=== PATIENT | male | born 1990 | race Caucasian/White ===

== ENCOUNTER 2020-06-17 13:00 | Outpatient (RCR) | payer OTHER, SELFPAY ==
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
== END 2020-07-30 13:25 | disposition other institution (70) ==
LOC: HO.PT 13:00
PROVIDERS: PCP Nurse Practitioner Family; Visit Provider Nurse Practitioner Family
DX: M54.5 Low back pain (principal)
CPT/HCPCS: 97110; 97112

== ENCOUNTER 2020-07-26 11:50 | Emergency (ER) | payer OTHER, SELFPAY ==
--- NOTE | 2020-07-26 | XR_ITS ---
EXAMINATION: XR CHEST CLINICAL INFORMATION: Cough COMPARISON: None TECHNIQUE: 2 views of the chest were obtained. FINDINGS: No significant abnormality is noted involving the heart, lungs, mediastinum, bony thorax or soft tissues. XR/XR chest 2V IMPRESSION: Unremarkable examination.
[2020-07-26 12:32] VITALS: BP 107/80; PULSE 82; RESP 16; TEMP 36.8; O2SAT 97
--- NOTE | 2020-07-26 12:54 | ED_ITS ---
HPI - Asthma General Chief Complaint: Upper Respiratory Symptoms Stated Complaint: COUGH Time Seen by Provider: 07/26/20 12:51 Source: patient Mode of arrival: ambulatory Limitations: no limitations History of Present Illness MD complaint: other (cough) Onset (ago): month(s) (since December) Severity: moderate Associated symptoms: dry cough Asthma History: childhood onset Treatments Prior to Arrival: inhaled bronchodilator Related Data Previous Rx's Medication Instructions Recorded albuterol sulfate 1 inh INHALATION Q4-6H PRN #1 ea 07/26/20 benzonatate [Tessalon Perles] 100 mg PO TID PRN #20 cap 07/26/20 cetirizine [Zyrtec] 10 mg PO DAILY #30 cap 07/26/20 famotidine [Pepcid] 20 mg PO DAILY #30 tab 07/26/20 fluticasone propionate 1 inh INHALATION Q12H #10.6 g 07/26/20 prednisone 40 mg PO DAILY 5 Days #10 tab 07/26/20 Allergies Allergy/AdvReac Type Severity Reaction Status Date / Time seafood Allergy Swelling Verified 07/26/20 12:34 Review of Systems Review of Systems: Constitutional : No Fever, No Chills ENT/Mouth : No sore throat, No Rhinorrhea, No Swallowing Difficulty Eyes: No Eye Pain, No Swelling, No Redness Cardiovascular : No Chest Pain, positive SOB, No Orthopnea, no Edema Respiratory : pos Cough, No Sputum, pos Wheezing, no dyspnea Gastrointestinal : No Nausea, No Vomiting, No Diarrhea, No abdominal Pain, No Hematochezia, No Melena Genitourinary : No Dysuria, No Urinary Frequency, No Hematuria Musculoskeletal : No joint pain, No Myalgias Skin : No Skin Lesions, No rash Neuro : No Weakness, No Numbness, No Dizziness, No Headache PMFSH Past Medical History Attestation statement: The following information was validated with the patient. Medical History Asthma Social History Social History (Updated 07/26/20 @ 13:22 by Ana Paula Yan DO) Smoking Status: Former smoker Use of substances other than those prescribed or required for medical reasons: No Advance Directives: No Advance Directives Information Provided: No Physical Exam Vital Signs: Vital Signs: Last Vital Signs Temp 98.3 F 07/26/20 12:32 Pulse 82 12/07/20 12:32 Resp 16 07/26/20 12:32 BP 107/80 07/26/20 12:32 Pulse Ox 97 07/26/20 12:32 Body Mass Index 20.0 Appearance: Alert. Oriented X3. No acute distress. Eyes: Pupils equal, round and reactive to light. ENT: Pharynx normal. Neck: Normal inspection. Neck supple. CVS: Normal heart rate and rhythm. Pulses normal. Respiratory: No respiratory distress. Breath sounds normal. Abdomen: Soft and non-tender. Skin: Skin warm and dry. Normal skin color. Normal skin turgor. Extremities: No lower extremity edema. No calf ttp Neuro: Oriented X 3. No motor deficit. No sensory deficit. 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 - at this time will need CXR and start on fluticasone as well as daily zyrtec/prednisone and pepcid in case of acid reflux can follow up with PCP Discharge Plan Discharge Clinical Impression: Cough Patient Disposition: Home, Self-Care Instructions: Chronic Cough (ED) Additional Instructions: return to ED for any worsening symptoms or concerns your chest xray was negative Prescriptions: New prednisone 20 mg tablet 40 mg PO DAILY 5 Days Qty: 10 RF: 0 Zyrtec 10 mg capsule 10 mg PO DAILY Qty: 30 RF: 1 fluticasone propionate 44 mcg/actuation HFA aerosol inhaler 1 inh inhalation Q12H Qty: 10.6 RF: 0 famotidine [Pepcid] 20 mg tablet 20 mg PO DAILY Qty: 30 RF: 0 benzonatate [Tessalon Perles] 100 mg capsule 100 mg PO TID PRN (Reason: cough) Qty: 20 RF: 0 albuterol sulfate 90 mcg/actuation aerosol powdr breath activated 1 inh inhalation Q4-6H PRN (Reason: shortness of breath or wheezing) Qty: 1 RF: 0 Referrals: Orquidea Gallegos NP [Primary Care Provider] - 2 days (you should see a printed circuit board panels deburrer)
== END 2020-07-26 13:53 | disposition home or self-care (01) ==
PROVIDERS: Emergency Provider Emergency Medicine; PCP Nurse Practitioner Family
DX: R05 Cough (principal); J45.909 Unspecified asthma, uncomplicated; Z79.899 Other long term (current) drug therapy; Z87.891 Personal history of nicotine dependence
CPT/HCPCS: 71046; 99283

== ENCOUNTER 2021-01-06 14:00 | Outpatient (RCR) | payer OTHER, SELFPAY ==
--- NOTE | 2020-12-22 15:18 | MHC.PT.EP ---
[facility] [place] [facility] [place] [facility] [place] [facility] [address] Syeda Norman [address] [phone] F: [phone] F: [phone] F: [phone] F: [phone] Physical Therapy Plan of Care Date of Evaluation: Date of Surgery: NA Diagnosis: thoracic spine pain Assessment: The patient was previously treated for his lumbar spine with a good outcome. He now presents for thoracic spine pain. He has reduced thoracic mobility noted between T6-8 with more pain with left UPA's The patient has poor breathing mechanics and he tends to be a chest breather. He has poor sitting posture during the evaluation. Poor postural awareness noted. UE ROM is WNL with pain at end range. Pt is a good candidate for skilled PT Frequency and Duration: The patient will be seen 2x/week x 4 weeks. Short Term Goals: 2 weeks 1.Pt to able to demonstrate proper sitting posture with the use of a lumbar roll to decrease aggravating factors. 2.Pt to be able to demonstrate proper posture for common leisure activities such as crocheting and phone/tablet use. 3.For the patient to demonstrate proper upright sitting posture with use of the lumbar roll to improve compliance and carryover. Half-Way Goals: 4 weeks 1.The patient to demonstrate proper lifting mechanics for household chore activities to show improved functional mobility. 2. pt to be able to do all functional movements such as squatting, bending, and reaching overhead with good motor control and no pain. 3. Pt to be independent with final HEP for pain control. Treatment Plan: Modalities to reduce pain, spasms and effusion. Manual therapy to restore motion and function. Therapeutic exercise to improve strength and flexibility. Neuromuscular re-education for posture and balance. Therapeutic activities to return to functional activities of daily living. Electronically signed by: Jasmin Joregnsen PT DPT Please sign and return to therapist. Thank you for your referral.
== END 2021-01-09 14:00 | disposition home or self-care (01) ==
LOC: HO.PT 14:00
PROVIDERS: PCP Internal Medicine; Visit Provider Internal Medicine
DX: M54.6 Pain in thoracic spine (principal); G89.29 Other chronic pain
CPT/HCPCS: 97110; 97112; 97140; 97162

== ENCOUNTER 2021-01-06 14:56 | Outpatient (REF) | payer OTHER, SELFPAY ==
--- NOTE | ~2021-01-06 | XR_ITS ---
EXAMINATION: XR THORACOLUMBAR SPINE CLINICAL INFORMATION: Pain in thoracic spine. COMPARISON: Report from thoracic spine radiographs dated 02/24/2014. TECHNIQUE: AP, lateral, and swimmer's views of the thoracic spine. FINDINGS: The vertebral alignment is normal. No intrinsic bony abnormality. The disc heights and neural foramina are well maintained. The endplates and posterior elements are normal. No fracture or subluxation. The surrounding prevertebral soft tissues are unremarkable. XR/XR thoracic spine 2V IMPRESSION: Unremarkable examination.
== END 2021-01-06 14:57 | disposition home or self-care (01) ==
LOC: HO.XRAY 14:56
PROVIDERS: PCP Internal Medicine; Visit Provider Internal Medicine
DX: M54.6 Pain in thoracic spine (principal); G89.29 Other chronic pain
CPT/HCPCS: 72070

== ENCOUNTER 2021-01-18 08:09 | Outpatient (REF) | payer OTHER, SELFPAY ==
[2021-01-18 09:28] LABS: MANUAL DIFF FLAG NO
[2021-01-18 09:33] LABS: Basophils Absolute Auto 0.1 X10*3/uL (0.0-0.2); Basophils Percent Auto 0.8 % (0-2); Eosinophils Absolute Auto 1.5 X10*3/uL (0.0-0.4); Eosinophils Percent Auto 18.2 % (0-4); Hematocrit 45.8 % (42-52); Hemoglobin 15.5 g/dl (14.0-18.0); Imm Gran Abs Auto 0.03 X10*3/uL (0.00-0.03); Imm Gran Pct Auto 0.4 % (0.0-0.4); Lymphocytes Absolute Auto 2.3 X10*3/uL (1.2-4.9); Lymphocytes Percent Auto 27.3 % (20-40); Mean Corpuscular HGB Conc 33.8 g/dl (31.0-36.0); Mean Corpuscular Hemoglobin 29.9 pg (27.0-33.0); Mean Corpuscular Volume 88.4 fL (80-98); Mean Platelet Volume 10.8 fL (9.4-12.4); Monocytes Absolute Auto 0.6 X10*3/uL (0.1-1.2); Monocytes Percent Auto 7.3 % (2-11); Neutrophils Absolute Auto 3.9 X10*3/uL (2.0-8.3); Platelet Count 234 X10*3/uL (160-400); Red Blood Count 5.18 X10*6/uL (4.60-5.80); Red Cell Distribution Width 12.6 % (11.0-16.0); White Blood Count 8.4 X10*3/uL (4.8-10.8)
[2021-01-18 10:00] LABS: Alanine Aminotransferase 18 U/L (0-40); Albumin Level 4.5 g/dL (3.5-5.0); Alkaline Phosphatase 59 U/L (39-117); Anion Gap 12 (12-20); Aspartate Amino Transferase 15 U/L (5-37); Bilirubin Total 0.6 mg/dL (0.0-1.0); Blood Urea Nitrogen 9 mg/dL (9-16); Calcium 9.5 mg/dL (8.4-10.2); Carbon Dioxide 29 mmol/L (22-29); Chloride 105 mmol/L (96-108); Estimated Glomerular Filt Rate > 60; Glucose Random 106 mg/dL (60-115); Potassium 3.7 mmol/L (3.3-5.1); Sodium 142 mmol/L (135-145); Total Protein 7.3 g/dL (6.5-8.0)
[2021-01-18 10:25] LABS: Thyroid Stimulating Hormone 2.11 uIU/mL (0.32-4.0)
[2021-01-20 17:06] LABS: Transglutaminase IgA 1 U/mL
[2021-01-23 22:37] LABS: Endomysial IgA Antibody Negative (Negative)
== END 2021-01-18 08:10 | disposition home or self-care (01) ==
LOC: HO.LAB 08:09
PROVIDERS: PCP Internal Medicine; Referring Provider Internal Medicine; Visit Provider Physician Assistant
DX: R10.11 Right upper quadrant pain (principal); K21.9 Gastro-esophageal reflux disease without esophagitis; R19.7 Diarrhea, unspecified; K59.09 Other constipation; R74.01 Elevation of levels of liver transaminase levels; Z79.899 Other long term (current) drug therapy
CPT/HCPCS: 36415; 80053; 83516; 84443; 85025; 86255; 86256; 99202

== ENCOUNTER 2021-01-22 03:41 | Emergency (ER) | payer OTHER, SELFPAY ==
--- NOTE | ~2021-01-22 | XR_ITS ---
EXAMINATION: XR CHEST CLINICAL INFORMATION: Dyspnea COMPARISON: 07/26/2020 TECHNIQUE: Frontal view of the chest was obtained. FINDINGS: The lungs are clear with no focal consolidation. No evidence of pneumothorax, pulmonary edema, or pleural effusions. The cardiomediastinal silhouette is unremarkable. No acute osseous findings. XR/XR chest 1V IMPRESSION: No acute cardiopulmonary findings.
[2021-01-22 03:54] VITALS: BP 132/92; PULSE 87; RESP 24; TEMP 36.8; O2SAT 95; BMI 20.5
[2021-01-22] MEDS: Albuterol Sulfate (0.083%) 2.5 MG/3 ML VIAL.NEB 5 MG INHALE ×2 (04:10→04:38)
[2021-01-22 04:11] VITALS: PULSE 81; O2SAT 97
[2021-01-22 04:39] VITALS: PULSE 96; O2SAT 95
[2021-01-22 05:04] VITALS: BP 126/71; PULSE 97; RESP 22; O2SAT 92
[2021-01-22] MEDS: predniSONE 20 MG TABLET 40 MG PO (05:06)
[2021-01-22 05:15] LABS: Influenza A PCR NEGATIVE (Negative); Influenza B PCR NEGATIVE (Negative); Resp Syncy Virus RNA Qual PCR NEGATIVE (Negative); SARS COV2 PCR INHOUSE NEGATIVE (Negative)
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
[2021-01-22 06:00] VITALS: PULSE 90; RESP 18; O2SAT 94
--- NOTE | 2021-01-22 06:08 | ED.ASTHMA ---
HPI - Asthma General Chief Complaint: Asthma Stated Complaint: cough/headache Time Seen by Provider: 01/22/21 04:35 Source: patient Mode of arrival: ambulatory History of Present Illness HPI Narrative: 30-year-old male with known asthma and endorses poor compliance with maintenance inhaler presents with worsening shortness of breath for the past couple of days that has been on ongoing problem since he purchase a dog. Patient states that started with cough then shortness of breath and wheezing. Otherwise, he denies any fevers, chills, GI or symptoms. Related Data Home Medications Medication Instructions Recorded Confirmed omeprazole magnesium 20 mg 20 mg PO DAILY 06/24/20 01/21/21 tablet,delayed release ibuprofen 600 mg tablet 600 mg PO TID 07/29/20 01/21/21 Previous Rx's Medication Instructions Recorded benzonatate [Tessalon Perles] 100 mg PO TID PRN #20 cap 07/26/20 famotidine [Pepcid] 20 mg PO DAILY #30 tab 07/26/20 fluticasone propionate 1 inh INHALATION Q12H #10.6 g 07/26/20 albuterol sulfate 90 mcg/actuation 2 puff INHALATION Q6H PRN #8.5 g 01/16/21 aerosol inhaler omeprazole 20 mg capsule,delayed 20 mg PO BID 30 Days #60 cap 01/18/21 release sucralfate 1 gram tablet 1 g PO QIDACHS 21 Days #90 tab 01/18/21 prednisone 40 mg PO DAILY 4 Days #8 tab 01/22/21 Allergies Allergy/AdvReac Type Severity Reaction Status Date / Time seafood Allergy Severe Anaphylaxis Verified 01/22/21 03:54 Review of Systems Review of Systems: Pertinent positives and negatives as stated in HPI 10 point review of systems is otherwise negative. [facility] Past Medical History Source: nursing notes reviewed Medical History Asthma Numbness and tingling of both legs Surgical History No pertinent past surgical history Family History Family History Father No problems noted. Mother No problems noted. Social History Social History Household Members: Significant Other Alcohol intake: never Patient Tobacco Use Status: Never used Tobacco Advance Directives: No Advance Directives Information Provided: No Current occupational status: employed Physical Exam Vital Signs: Vital Signs: Last Vital Signs Temp 98.3 F 01/22/21 03:54 Pulse 90 01/22/21 06:00 Resp 18 01/22/21 06:00 BP 126/71 01/22/21 05:04 Pulse Ox 94 01/22/21 06:00 Oxygen Flow Rate 3 01/22/21 03:54 Body Mass Index 20.5 VITAL SIGNS: Reviewed. GENERAL: Well developed, well nourished, in no acute distress. HEAD: Normocephalic/atraumatic EYES: PERRLA, EOMI OROPHARYNX: no oral lesions noted, posterior pharynx clear NECK: Supple, no adenopathy LUNGS: Expiratory wheeze, tachypnea, no rales SpO2<95> on 2 L of nasal cannula CARDIOVASCULAR: Regular rate and rhythm without noted murmurs ABDOMEN: Soft, non-tender, non-distended with bowel sounds. NEUROLOGIC: Alert and oriented x 4. Strength and sensation to light touch were grossly intact x 4. Course Course Course Narrative: 30-year-old male with history and clinical presentation consistent with mild asthma exacerbation requiring p.o. prednisone and to 5 mg hour long albuterol treatments with significant improvement in aeration, resolution of expiratory wheeze and improvement of oxygen saturation on room air. Chest x-ray is negative for any acute findings. MDM - Asthma Lab Data Labs: Lab Results 01/22/21 Range/Units 04:21 Coronavirus (PCR) NEGATIVE (Negative) Influenza Type A (PCR) NEGATIVE (Negative) Influenza Type B (PCR) NEGATIVE (Negative) RSV RNA Qual (PCR) NEGATIVE (Negative) Discharge Plan Discharge Clinical Impression: Asthma exacerbation Patient Disposition: Home, Self-Care Instructions: Asthma (ED) Additional Instructions: 1. Recommend starting Claritin and Flonase for additional asthma exacerbation prevention. In addition, please start taking your maintenance inhaler as prescribed. 2. Please follow-up with your primary care provider for re-evaluation. Return to the ER for any acute worsening of symptoms. Prescriptions: New prednisone 20 mg tablet 40 mg PO DAILY 4 Days Qty: 8 RF: 0 No Action albuterol sulfate [ProAir HFA] 90 mcg/actuation HFA aerosol inhaler 2 puff inhalation Q6H PRN (Reason: shortness of breath or wheezing) Qty: 8.5 RF: 0 fluticasone propionate 44 mcg/actuation HFA aerosol inhaler 1 inh inhalation Q12H Qty: 10.6 RF: 0 famotidine [Pepcid] 20 mg tablet 20 mg PO DAILY Qty: 30 RF: 0 benzonatate [Tessalon Perles] 100 mg capsule 100 mg PO TID PRN (Reason: cough) Qty: 20 RF: 0 omeprazole magnesium 20 mg tablet,delayed release (DR/EC) 20 mg PO DAILY RF: 0 ibuprofen 600 mg tablet 600 mg PO TID RF: 0 omeprazole 20 mg capsule,delayed release(DR/EC) 20 mg PO BID 30 Days Qty: 60 RF: 6 sucralfate 1 gram tablet 1 g PO QIDACHS 21 Days Qty: 90 RF: 0 Referrals: Po,Monique Evans MD [Primary Care Provider] - 2 days
[2021-01-22 06:43] VITALS: BP 101/58; PULSE 98; RESP 18; O2SAT 96
== END 2021-01-22 06:37 | disposition home or self-care (01) ==
PROVIDERS: Emergency Provider Student in an Organized Health Care Education/Training Program; PCP Internal Medicine
DX: J45.901 Unspecified asthma with (acute) exacerbation (principal); R05 Cough; R51.9 Headache, unspecified; Z20.822 Contact with and (suspected) exposure to COVID-19; Z79.899 Other long term (current) drug therapy; Z91.14 Patient's other noncompliance with medication regimen
CPT/HCPCS: 0241U; 36415; 71045; 94640; 99283

== ENCOUNTER 2021-02-16 12:32 | Day surgery (SDC) | payer OTHER, SELFPAY ==
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
[2021-02-16 12:43] VITALS: BP 114/55; PULSE 78; RESP 18; TEMP 36.8; O2SAT 97; BMI 20.2
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
[2021-02-16] MEDS: Lactated Ringers 1,000 ML 100 ML IVCONT (13:15)
--- NOTE | 2021-02-16 13:30 | P.HPSUR_ITS ---
Pre-Procedural Eval Section A Date of Service: 02/16/21 Section B Chief Complaint: GERD Relevant Family History (Specify if Yes): No Relevant Social History: None Present Medications: see Short Stay Collaborative assessment Medical History: Significant History (Allergic rhinitis Asthma GERD (gastroesophageal reflux disease) Numbness and tingling of both legs) History of Previous Operations: No relevant previous surgery Allergies: Allergies Allergy/AdvReac Type Severity Reaction Status Date / Time seafood Allergy Severe Anaphylaxis Verified 02/16/21 13:20 Review of Systems Sugical H&P ROS: Negative: Constitution, Cardiovascular, Respiratory, Neurological, Psychiatric, Hem-Onc, Allergic/Immunologic, Gastrointestinal, Genitourinary, Musculoskeletal, Integumentary, Endocrine and Eyes/Ears/Nose/Throat Exam Surgical H&P Exam: Normal: HEENT, Normal: Heart, Normal: Lungs, Normal: Extremit ies, Normal: Abdomen, Normal: Skin and Normal: Neurological Plan Diagnosis/Plan: Unchanged I have reviewed the history and physical and performed a pertinent physical examination on my patient. No changes have occurred unless specified.
--- NOTE | 2021-02-16 13:32 | PM.OP ---
Brief Operative Note Date of Service: 02/16/21 Pre-op diagnosis: dysphagia Post-op diagnosis: same Procedure: see op note Surgeon: Mike Constantino MD Anesthesia: MAC Was an Advertising Editor used for this Procedure?: No Estimated blood loss (mL): 0 Condition: stable Disposition: PACU
--- NOTE | 2021-02-16 13:32 | W.PM.OPN ---
Operative Note Operative Note Date of Service: 02/16/21 Narrative: Procedure Description: EGD FLEXIBLE TRANSORAL UPPER GASTROINTESTINAL ENDOSCOPY UPPER ENDOSCOPY Consent: Indications for the procedure and potential complications of bleeding, perforation, reaction to medications and missed diagnosis were discussed with the patient and informed consent was obtained. Instrument: Olympus GIF H 190 J mid size upper endoscope Monitoring: Vital signs and clinical assessment, continuous EKG monitoring, Pulse oximetry, Carbon Dioxide monitoring and blood pressure monitoring were done throughout the procedure. Procedure: The patient was placed in the left lateral decubitis position and pre-procedure medications were administered and a bite block was placed. The endoscope was inserted into the mouth and advanced under direct vision to the third part of duodenum. A careful inspection was made as the upper endoscope was withdrawn including a retroflexed examination of the proximal stomach; Findings and interventions are described below. Findings: Larynx:normal Esophagus: GE junction at 42 cm, diaphragm hiatus at 42 cm, mild esophagitis noted with few islands suspicious for barretts mucosa so bx taken. The lower esophagus was dilated to 20 mm with balloon and the upper esophagus to 19 mm with balloon. biopsies taken from GEJ, distal and proximal esophagus in different jars. Stomach: Patchy gastric erythema. Biopsies were obtained. Grade 2 flap valve on retroflexed examination of the cardia. Duodenum: Normal bulb and descending duodenum, bx taken Intervention: Biopsies as noted above, balloon dilation Impression/Findings: barretts esophagus esophagitis PLAN: await bx cont with current treatments, might increase PPI depending on results if h pylori pos then treat
[2021-02-16 14:06] VITALS: BP 90/48; PULSE 85; RESP 16; TEMP 36.4; O2SAT 97
[2021-02-16 14:21] VITALS: BP 92/51; PULSE 63; RESP 16; O2SAT 99
[2021-02-16 14:40] VITALS: BP 101/62; PULSE 72; RESP 18; O2SAT 98
== END 2021-02-16 15:15 | disposition home or self-care (01) ==
PROVIDERS: PCP Internal Medicine; Visit Provider Internal Medicine Gastroenterology
PROC: 0DJ08ZZ Inspection of Upper Intestinal Tract, Via Natural or Artificial Opening Endoscopic (ICD-10-PCS; CPT 43235; principal; 2021-02-16 14:00)
DX: R13.10 Dysphagia, unspecified (principal); K21.9 Gastro-esophageal reflux disease without esophagitis; K20.80 Other esophagitis without bleeding; K44.9 Diaphragmatic hernia without obstruction or gangrene; J45.909 Unspecified asthma, uncomplicated; Z87.891 Personal history of nicotine dependence; Z79.899 Other long term (current) drug therapy; Z79.1 Long term (current) use of non-steroidal anti-inflammatories (NSAID)
CPT/HCPCS: 43249; 43239; 88305; 88342; C1726; J3010

== ENCOUNTER 2021-03-02 18:35 | Emergency (ER) | payer OTHER, SELFPAY ==
[2021-03-02 19:16] VITALS: BP 118/79; PULSE 80; RESP 18; TEMP 37.1; O2SAT 97; BMI 20.7
--- NOTE | 2021-03-02 20:10 | ED.GENADULT ---
HPI - General Adult General Chief complaint: Dyspnea Stated complaint: Bad Allergies Time Seen by Provider: 03/02/21 20:03 Related Data Home Medications Medication Instructions Recorded Confirmed omeprazole magnesium 20 mg 20 mg PO DAILY 06/24/20 01/21/21 tablet,delayed release ibuprofen 600 mg tablet 600 mg PO TID 07/29/20 01/21/21 Previous Rx's Medication Instructions Recorded benzonatate [Tessalon Perles] 100 mg PO TID PRN #20 cap 07/26/20 famotidine [Pepcid] 20 mg PO DAILY #30 tab 07/26/20 fluticasone propionate 1 inh INHALATION Q12H #10.6 g 07/26/20 omeprazole 20 mg capsule,delayed 20 mg PO BID 30 Days #60 cap 01/18/21 release prednisone 40 mg PO DAILY 4 Days #8 tab 01/22/21 albuterol sulfate 90 mcg/actuation 2 puff INHALATION Q6H PRN #8.5 g 02/05/21 aerosol inhaler benzonatate [Tessalon Perles] 100 mg PO TID PRN #30 cap 03/02/21 cetirizine [Zyrtec] 10 mg PO DAILY #20 cap 03/02/21 prednisone 40 mg PO DAILY 4 Days #8 tab 03/02/21 sucralfate 1 gram tablet 1 g PO QID #90 tab 03/02/21 Allergies Allergy/AdvReac Type Severity Reaction Status Date / Time seafood Allergy Severe Anaphylaxis Verified 02/16/21 13:20 Review of Systems Constitutional: Constitutional: Denies weight gain and Denies weight loss Cardiovascular: Cardiovascular: Reports no additional cardiovascular complaints Respiratory: Respiratory: Reports cough and Reports other (Allergy reaction to dogs, wheezing and cough) Gastrointestinal: Gastrointestinal: Denies abdominal pain, Denies belching, Denies melena, Denies bloating, Denies change in bowel habits, Denies dyspepsia, Denies heartburn, Denies nausea and Denies vomiting Neurologic: Reports system reviewed and no additional complaints, except as documented Psychiatric: Psychiatric: Reports no additional psychiatric complaints PMFSH Past Medical History Medical History Allergic rhinitis Asthma GERD (gastroesophageal reflux disease) Numbness and tingling of both legs Surgical History No pertinent past surgical history Family History Family History Father No problems noted. Mother No problems noted. Social History Social History Household Members: Significant Other Alcohol intake: never Patient Tobacco Use Status: Former Tobacco user Advance Directives: No Advance Directives Information Provided: No Current occupational status: employed Physical Exam Vital Signs: Vital Signs: Last Vital Signs Temp 98.7 F 03/02/21 19:16 Pulse 80 03/02/21 19:16 Resp 18 03/02/21 19:16 BP 118/79 03/02/21 19:16 Pulse Ox 97 03/02/21 19:16 Body Mass Index 20.7 Const: General: healthy appearing, no acute distress and well developed Nutritional Appearance: well nourished Orientation/consciousness: patient oriented x3 Neck: Neck: Yes normal visual inspection, Yes full ROM and Yes trachea midline Thyroid: Thyroid normal Resp: Auscultation: clear to auscultation bilaterally Cardio: Rate: regular rate Rhythm: regular rhythm GI: Inspection: Yes normal to inspection and No distended Palpation (GI): No hepatosplenomegaly present Auscultation: normal bowel sounds Skin: General skin exam: elasticity normal, turgor normal and dry skin Neuro: General: patient oriented x3 Course Course Course Narrative: 30-year-old male here with a past medical history of asthma is here today for asthma exacerbation. He reports that he believes that he is allergic to dogs. Patient has 2 dogs at home. Has an appointment with government program manager at the end of the month. Patient denies any worsening SOB. He has been using his inhalers and has been out of it for the last few hours. Patient reports that he often will start cough in and his asthma exacerbated even more. Patient denies any fever, chills only GI or symptoms I will give patient dose of prednisone and sent him on prednisone for 5 days. I will send him home with Nehemiah Mendez and he can use it as needed for cough. Will give him a dose of albuterol inhaler tonight. Patient is agreeable to plan of care and verbalizes understanding of instructions. He was given the opportunity to ask questions all questions answered. Discharge Plan Discharge Clinical Impression: Cough Asthma Qualifiers: Asthma severity: mild Asthma persistence: intermittent Asthma complication type: uncomplicated Qualified Code(s): J45.20 - Mild intermittent asthma, uncomplicated Patient Disposition: Home, Self-Care Instructions: Asthma (ED), Allergies (ED) Additional Instructions: You were seen here today for exacerbation of your asthma. Please follow-up with your government program manager. Try to stay away from the dogs as much as possible. You were given a dose of prednisone in the ER as well as inhaler. He will be sent home with prednisone for the next 4 days. You will be given a script for Zyrtec and inhaler. You may return to emergency department if your symptoms will get worse or if he will experience any additional concerning symptoms. Prescriptions: New prednisone 20 mg tablet 40 mg PO DAILY 4 Days Qty: 8 RF: 0 Zyrtec 10 mg capsule 10 mg PO DAILY Qty: 20 RF: 0 benzonatate [Tessalon Perles] 100 mg capsule 100 mg PO TID PRN (Reason: cough) Qty: 30 RF: 0 No Action albuterol sulfate [Ventolin HFA] 90 mcg/actuation HFA aerosol inhaler 2 puff inhalation Q6H PRN (Reason: for wheezing) Qty: 8.5 RF: 0 sucralfate 1 gram tablet 1 g PO QID Qty: 90 RF: 0 prednisone 20 mg tablet 40 mg PO DAILY 4 Days Qty: 8 RF: 0 fluticasone propionate 44 mcg/actuation HFA aerosol inhaler 1 inh inhalation Q12H Qty: 10.6 RF: 0 famotidine [Pepcid] 20 mg tablet 20 mg PO DAILY Qty: 30 RF: 0 benzonatate [Tessalon Perles] 100 mg capsule 100 mg PO TID PRN (Reason: cough) Qty: 20 RF: 0 omeprazole magnesium 20 mg tablet,delayed release (DR/EC) 20 mg PO DAILY RF: 0 ibuprofen 600 mg tablet 600 mg PO TID RF: 0 omeprazole 20 mg capsule,delayed release(DR/EC) 20 mg PO BID 30 Days Qty: 60 RF: 6 Stand Alone Forms: Work/School Release Interventions: ED Discharge Assessment Last Done: 03/02/21 20:33 Discharge Date/Time: 03/02/21 20:37
[2021-03-02] MEDS: predniSONE 20 MG TABLET 40 MG PO (20:31)
[2021-03-02] MEDS: Albuterol Sulfate 90 MCG 8 GM INHALER 2 PUFF INHALE (20:31)
--- NOTE | 2021-03-02 20:36 | PC.NURSE ---
PT GIVEN INHALER WITH INSTRUCTIONS PT LS CLEAR.
== END 2021-03-02 20:37 | disposition home or self-care (01) ==
PROVIDERS: Emergency Provider Emergency Medicine Emergency Medical Services; PCP Internal Medicine
DX: J45.20 Mild intermittent asthma, uncomplicated (principal); R06.00 Dyspnea, unspecified; R05 Cough; Z87.891 Personal history of nicotine dependence; Z79.899 Other long term (current) drug therapy
CPT/HCPCS: 99283

== ENCOUNTER → 2021-03-03 10:37 | Outpatient (BNVA) | payer MEDICAID, SELFPAY | PROVIDERS: PCP Internal Medicine; Referring Provider Internal Medicine; Visit Provider Physician Assistant | DX: K20.90 Esophagitis, unspecified without bleeding (principal) | CPT/HCPCS: 99212 ==

== ENCOUNTER 2021-04-17 20:17 | Emergency (ER) | payer MEDICAID, SELFPAY ==
[2021-04-17 20:22] VITALS: BP 126/76; PULSE 100; RESP 18; TEMP 36.7; O2SAT 96; BMI 20.2
[2021-04-17] MEDS: Albuterol Sulfate 90 MCG 8 GM INHALER 2 PUFF INHALE (22:23)
--- NOTE | 2021-04-17 22:32 | ED.GENADULT ---
HPI - General Adult General Chief complaint: General Medical Stated complaint: Asthma Time Seen by Provider: 04/17/21 21:51 Source: patient Mode of arrival: ambulatory Limitations: no limitations History of Present Illness HPI narrative: 30-year-old male presents with asthma exacerbation. States that he ran out of his inhaler, has dogs and is allergic to them. Does have an appointment baster hand. Patient does not report any fevers, chills, chest pain or pressure, shortness breath, wheezing, or any other concerning symptoms. Onset (ago): day(s) (1) Location: chest Severity: mild Exacerbating factors: other (Allergen exposure) Associated symptoms: denies other symptoms Treatments prior to arrival: none Related Data Previous Rx's Medication Instructions Recorded famotidine 20 mg tablet (Pepcid) 20 mg PO DAILY #30 tab 07/26/20 benzonatate 100 mg capsule 100 mg PO TID PRN #30 cap 03/02/21 (Tessalon Perles) cetirizine 10 mg capsule (Zyrtec) 10 mg PO DAILY #20 cap 03/02/21 prednisone 20 mg tablet 40 mg PO DAILY 4 Days #8 tab 03/02/21 pantoprazole 40 mg tablet,delayed 40 mg PO DAILY 30 Days #30 tab 03/03/21 release albuterol sulfate 90 mcg/actuation 2 puff PO Q6H PRN #18 g 03/06/21 aerosol inhaler (Ventolin HFA) fluticasone furoate 100 1 inh INHALATION DAILY #28 ea 03/10/21 mcg-vilanterol 25 mcg/dose inhalation powder (Breo Ellipta) sucralfate 1 gram tablet 1 g PO QID #90 tab 03/15/21 albuterol sulfate 90 mcg/actuation 2 puff INHALATION Q4-6H PRN #8.5 g 04/17/21 aerosol inhaler Allergies Allergy/AdvReac Type Severity Reaction Status Date / Time seafood Allergy Severe Anaphylaxis Verified 04/17/21 20:21 Review of Systems Review of Systems: Constitutional: No Fever, No Chills ENT/Mouth: No Ear Pain, No Hoarseness, No sore throat Eyes: No Eye Pain, No Swelling, No Redness, No Foreign Body Cardiovascular: No Chest Pain, No SOB Respiratory: Positive Cough, No Dyspnea, positive wheeze Gastrointestinal: No Nausea, No Vomiting, No Diarrhea, No abdominal Pain Genitourinary: No Dysuria, No Hematuria Musculoskeletal: No joint pain, No Myalgias, No Joint Swelling Skin: No Skin lacerations, No rash Neuro: No Weakness, No Numbness, No Paresthesias, No Loss of Consciousness, No Dizziness, No Headache Psych: No Anxiety/Panic, No Depression Heme/Lymph: no easy bruising, no Lymphadenopathy Endocrine: No Polyuria, No Polydipsia Yes all other systems are reviewed and are negative [facility] Past Medical History Attestation statement: The following information was validated with the patient. Source: old records reviewed Medical History (Updated 04/17/21 @ 21:59 by Lulú Whelan NP) Allergic rhinitis Asthma GERD (gastroesophageal reflux disease) Numbness and tingling of both legs Surgical History H/O esophagogastroduodenoscopy No pertinent past surgical history Family History Family History Father No problems noted. Mother No problems noted. Social History Social History Household Members: Significant Other Housing: Apartment Alcohol intake: never Patient Tobacco Use Status: Former Tobacco user Tobacco use type: Cigarette Years Smoked: stopped December 2018 e-Cigarette/Vaping Use: Never Used Second Hand Smoke Exposure: No Advance Directives: No Advance Directives Information Provided: No Current occupational status: employed Physical Exam Vital Signs: Vital Signs: Last Vital Signs Temp 98.1 F 04/17/21 20:22 Pulse 100 04/17/21 20:22 Resp 18 04/17/21 20:22 BP 126/76 04/17/21 20:22 Pulse Ox 96 04/17/21 20:22 Body Mass Index 20.2 Appearance: Alert. Oriented X3. No acute distress. Eyes: Pupils equal, round and reactive to light. ENT: Pharynx normal. Neck: Normal inspection. Neck supple. CVS: Normal heart rate and rhythm. Pulses normal. Respiratory: No respiratory distress. Expiratory wheezing to the upper lobes. Abdomen: Soft and nontender. Skin: Skin warm and dry. Normal skin color. Normal skin turgor. Extremities: Moves all extremities against resistance. Neuro: No motor deficit. No sensory deficit. Cranial nerves 2-12 intact. Course Course Course Narrative: 28-year-old male presents with asthma exacerbation after allergen contact. States that he ran out of his albuterol inhaler. He is speaking complete sentences, even unlabored respirations, appears to be in no distress. Has some faint expiratory wheezing noted. O2 sat 100% on room air during my assessment. Will order albuterol inhaler at this time and renew prescription. Patient was advised to keep his appointment with baster hand. Patient verbalized understanding of and agrees to plan of care discharge home. Medical Decision Making Differential Diagnosis Differential Diagnosis: Asthma exacerbation, cough, allergy Medical Records Medical records reviewed: Yes I reviewed the patient's medical records. Discharge Plan Discharge Clinical Impression: Asthma Patient Disposition: Home, Self-Care Instructions: Asthma (ED), How to Use a Metered-Dose Inhaler and a Spacer (ED) Additional Instructions: You were evaluated for asthma symptoms. Please take albuterol inhaler as needed for shortness breath and wheezing. Please follow-up with your baster hand. Thank you for choosing this emergency department for evaluation. Please follow-up with primary care physician as needed. Return to the emergency department for any new, concerning, or worsening symptoms. Prescriptions: New albuterol sulfate 90 mcg/actuation HFA aerosol inhaler 2 puff inhalation Q4-6H PRN (Reason: shortness of breath or wheezing) Qty: 8.5 RF: 0 No Action albuterol sulfate [Ventolin HFA] 90 mcg/actuation HFA aerosol inhaler 2 puff PO Q6H PRN (Reason: for wheezing) Qty: 18 RF: 0 sucralfate 1 gram tablet 1 g PO QID Qty: 90 RF: 0 prednisone 20 mg tablet 40 mg PO DAILY 4 Days Qty: 8 RF: 0 Zyrtec 10 mg capsule 10 mg PO DAILY Qty: 20 RF: 0 benzonatate [Tessalon Perles] 100 mg capsule 100 mg PO TID PRN (Reason: cough) Qty: 30 RF: 0 famotidine [Pepcid] 20 mg tablet 20 mg PO DAILY Qty: 30 RF: 0 Breo Ellipta 100-25 mcg/dose blister with device 1 inh inhalation DAILY Qty: 28 RF: 3 pantoprazole 40 mg tablet,delayed release (DR/EC) 40 mg PO DAILY 30 Days Qty: 30 RF: 11 Stand Alone Forms: Work/School Release Interventions: ED Discharge Assessment Last Done: 04/17/21 22:25 Discharge Date/Time: 04/17/21 22:25
== END 2021-04-17 22:25 | disposition home or self-care (01) ==
PROVIDERS: Emergency Provider Internal Medicine; PCP Internal Medicine
DX: J45.909 Unspecified asthma, uncomplicated (principal); Z87.891 Personal history of nicotine dependence; Z79.899 Other long term (current) drug therapy
CPT/HCPCS: 99283

== ENCOUNTER 2021-05-30 02:47 | Emergency (ER) | payer OTHER, SELFPAY ==
[2021-05-30 03:47] VITALS: BP 128/84; PULSE 78; RESP 16; TEMP 36.8; O2SAT 99; BMI 19.5
[2021-05-30 03:57] VITALS: BP 140/87; PULSE 78; RESP 18; TEMP 36.8; O2SAT 99
--- NOTE | 2021-05-30 04:09 | PC.NURSE ---
PT TO ROOM WITH C/O LEFT SIDED MOUTH PAIN AND SWELLING WHICH STARTED 2 DAYS AGO. PT REFUSING ICE PACK. PT AWAITING FOR MD'S EVAL.
--- NOTE | 2021-05-30 05:29 | ED.DENTAL ---
HPI - Dental/Oral General Chief complaint: Dental/Oral Stated complaint: swollen face Time Seen by Provider: 05/30/21 05:20 Source: patient Mode of arrival: ambulatory Limitations: no limitations History of Present Illness HPI Narrative: Patient comes emergency room complaining of bilateral dental pain in the maxilla. Patient states he is scheduled for root canal, he noticed that the right side of his face has been getting more swollen, complaining of worsening dental pain. Patient denies fever or chills. MD Complaint: tooth pain Related Data Previous Rx's Medication Instructions Recorded famotidine 20 mg tablet (Pepcid) 20 mg PO DAILY #30 tab 07/26/20 benzonatate 100 mg capsule 100 mg PO TID PRN #30 cap 03/02/21 (Tessalon Perles) cetirizine 10 mg capsule (Zyrtec) 10 mg PO DAILY #20 cap 03/02/21 prednisone 20 mg tablet 40 mg PO DAILY 4 Days #8 tab 03/02/21 pantoprazole 40 mg tablet,delayed 40 mg PO DAILY 30 Days #30 tab 03/03/21 release albuterol sulfate 90 mcg/actuation 2 puff PO Q6H PRN #18 g 03/06/21 aerosol inhaler (Ventolin HFA) fluticasone furoate 100 1 inh INHALATION DAILY #28 ea 03/10/21 mcg-vilanterol 25 mcg/dose inhalation powder (Breo Ellipta) sucralfate 1 gram tablet 1 g PO QID #90 tab 03/15/21 albuterol sulfate 90 mcg/actuation 2 puff INHALATION Q4-6H PRN #8.5 g 04/17/21 aerosol inhaler ketorolac 10 mg tablet 10 mg PO TID PRN 5 Days #10 tab 05/30/21 penicillin V potassium 500 mg 500 mg PO TID 10 Days #30 tab 05/30/21 tablet Allergies Allergy/AdvReac Type Severity Reaction Status Date / Time seafood Allergy Severe Anaphylaxis Verified 04/17/21 20:21 Review of Systems Review of Systems: Constitutional : No Weight loss, No Fever, No Chills, No Night Sweats, No Fatigue, No Malaise ENT/Mouth : No Hearing loss, No Ear Pain, No Nasal Congestion, No Sinus Pain, No Hoarseness, No sore throat, No Rhinorrhea, No Swallowing Difficulty, complaining of dental pain Eyes: No Eye Pain, No Swelling, No Redness, No Foreign Body, No Discharge, No Vision Changes Cardiovascular : No Chest Pain, No SOB, No Dyspnea on Exertion, No Orthopnea, No Edema, No Palpitations Respiratory : No Cough, No Sputum, No Wheezing, No Smoke Exposure, No Dyspnea Gastrointestinal : No Nausea, No Vomiting, No Diarrhea, No Constipation, No abdominal Pain, No Hematochezia, No Melena Genitourinary : no irregular bleeding, No Dysuria, No Urinary Frequency, No Hematuria, No Urinary Incontinence, No Urgency, No Flank Pain, No Urinary Flow Changes, No Hesitancy Musculoskeletal : No joint pain, No Myalgias, No Joint Swelling Skin : No Skin Lesions, No rash Neuro : No Weakness, No Numbness, No Paresthesias, No Loss of Consciousness, No Dizziness, No Headache Psych : No Anxiety/Panic, No Depression, No SI/HI/AH/VH, No Social Issues, Heme/Lymph: No Bruising, No Bleeding,No Lymphadenopathy Endocrine : No Polyuria, No Polydipsia, No Temperature Intolerance PMFSH Past Medical History Medical History Allergic rhinitis Asthma GERD (gastroesophageal reflux disease) Numbness and tingling of both legs Surgical History H/O esophagogastroduodenoscopy No pertinent past surgical history Family History Family History Father No problems noted. Mother No problems noted. Social History Social History Household Members: Significant Other Housing: Apartment Alcohol intake: never Patient Tobacco Use Status: Former Tobacco user Tobacco use type: Cigarette Years Smoked: stopped December 2018 e-Cigarette/Vaping Use: Never Used Second Hand Smoke Exposure: No Advance Directives: No Advance Directives Information Provided: Yes Current occupational status: employed Physical Exam Vital Signs: Vital Signs: Last Vital Signs Temp 98.2 F 05/30/21 03:57 Pulse 78 05/30/21 03:57 Resp 18 05/30/21 03:57 BP 140/87 H 05/30/21 03:57 Pulse Ox 99 05/30/21 03:57 Body Mass Index 20.0 Const: Other: Appearance: Alert. Oriented X3. No acute distress. Eyes: Pupils equal, round and reactive to light. ENT: Pharynx normal. Poor dentition bilaterally. Mild facial swelling on the maxillary side right-sided Neck: Normal inspection. Neck supple. No lymph nodes noted. No crepitus CVS: Normal heart rate and rhythm. Pulses normal. Normal S1 and S2 Respiratory: No respiratory distress. Breath sounds normal. No Wheezing. No rales Abdomen: Soft and nontender. No rigidity. No distention. good BS x4 Skin: Skin warm and dry. Normal skin color. Normal skin turgor. Extremities: No lower extremity edema. No lower extremity edema. No Lacerations. No Rash Neuro: Oriented X 3. No motor deficit. No sensory deficit. Moving all extermities. No slurred speech. Course Course Course Narrative: Patient was provided with 1 dose of IM Toradol and 1st dose of penicillin. Patient instructed to follow-up with his dentist Discharge Plan Discharge Clinical Impression: Pain, dental Patient Disposition: Home, Self-Care Instructions: Toothache (ED) Additional Instructions: Please follow-up with your primary care physician tomorrow. If you have any worsening or new symptoms, please return to the emergency room or call 911 Prescriptions: New penicillin V potassium 500 mg tablet 500 mg PO TID 10 Days Qty: 30 RF: 0 ketorolac 10 mg tablet 10 mg PO TID PRN (Reason: pain) 5 Days Qty: 10 RF: 0 No Action albuterol sulfate [Ventolin HFA] 90 mcg/actuation HFA aerosol inhaler 2 puff PO Q6H PRN (Reason: for wheezing) Qty: 18 RF: 0 sucralfate 1 gram tablet 1 g PO QID Qty: 90 RF: 0 prednisone 20 mg tablet 40 mg PO DAILY 4 Days Qty: 8 RF: 0 Zyrtec 10 mg capsule 10 mg PO DAILY Qty: 20 RF: 0 benzonatate [Tessalon Perles] 100 mg capsule 100 mg PO TID PRN (Reason: cough) Qty: 30 RF: 0 famotidine [Pepcid] 20 mg tablet 20 mg PO DAILY Qty: 30 RF: 0 albuterol sulfate 90 mcg/actuation HFA aerosol inhaler 2 puff inhalation Q4-6H PRN (Reason: shortness of breath or wheezing) Qty: 8.5 RF: 0 Breo Ellipta 100-25 mcg/dose blister with device 1 inh inhalation DAILY Qty: 28 RF: 3 pantoprazole 40 mg tablet,delayed release (DR/EC) 40 mg PO DAILY 30 Days Qty: 30 RF: 11
[2021-05-30] MEDS: Penicillin V Potassium 250 MG TABLET 500 MG PO (05:33)
[2021-05-30] MEDS: Ketorolac Tromethamine 60 MG/2 ML VIAL IM (05:34)
--- NOTE | 2021-05-30 05:39 | PC.NURSE ---
PT MEDICATED FOR PAIN AND ANTIBIOTICS. PT AWAITING FOR D/C INSTRUCTIONS.
== END 2021-05-30 06:01 | disposition home or self-care (01) ==
PROVIDERS: Emergency Provider Emergency Medicine; PCP Internal Medicine
DX: K08.89 Other specified disorders of teeth and supporting structures (principal); J45.909 Unspecified asthma, uncomplicated; Z79.899 Other long term (current) drug therapy
CPT/HCPCS: 96372; 99283; 99284; J1885

== ENCOUNTER → 2021-06-22 15:40 | Outpatient (BNVA) | payer OTHER, SELFPAY | PROVIDERS: PCP Internal Medicine; Visit Provider Anesthesiology | DX: M47.814 Spondylosis without myelopathy or radiculopathy, thoracic region (principal); G89.4 Chronic pain syndrome; N20.0 Calculus of kidney | CPT/HCPCS: 99202 ==

== ENCOUNTER → 2021-06-28 15:57 | Outpatient (BNVA) | payer OTHER, MEDICAID, SELFPAY | PROVIDERS: PCP Internal Medicine; Visit Provider Urology ==

== ENCOUNTER 2021-07-25 18:36 | Outpatient (REF) | payer OTHER, MEDICAID, SELFPAY ==
--- NOTE | ~2021-07-25 | MR_ITS ---
EXAMINATION: MR LUMBAR SPINE WITHOUT CONTRAST CLINICAL INFORMATION: Spondylosis without myelopathy. COMPARISON: Lumbar spine radiographs 04/20/2020. TECHNIQUE: MRI of the lumbar spine was obtained using routine sequences without contrast. FINDINGS: Alignment is normal. Vertebral heights are preserved. No acute bone marrow signal changes. There is disc desiccation at multiple levels without substantial loss of intervertebral disc height. Annular contours are normal at all levels and there is no canal or neuroforaminal compromise. No mass effect on the traversing or foraminal nerve roots. The tip of the conus medullaris is located at L1. No mass effect on the conus. Visualized distal cord signal intensity is normal. Limited visualization of the retroperitoneal anatomy reveals no abnormal finding. Psoas and paraspinal muscle groups are symmetric. MR/MR lumbar spine wo con IMPRESSION: Normal lumbar spine MRI.
== END 2021-07-25 18:37 | disposition home or self-care (01) ==
LOC: HO.MRI 18:36
PROVIDERS: PCP Internal Medicine; Visit Provider Anesthesiology
DX: M54.50 Low back pain, unspecified (principal); M47.816 Spondylosis without myelopathy or radiculopathy, lumbar region
CPT/HCPCS: 72148

== ENCOUNTER 2021-08-23 08:38 | Outpatient (REF) | payer OTHER, SELFPAY ==
[2021-08-23 11:10] LABS: Binax Internal Control QC Valid; Binax Lot number: 9864; Binax Now Covid-19 Ag Positive (Negative)
== END 2021-08-23 08:39 | disposition home or self-care (01) ==
LOC: HO.LAB 08:38
PROVIDERS: Visit Provider Internal Medicine
DX: Z20.822 Contact with and (suspected) exposure to COVID-19 (principal)
CPT/HCPCS: C9803

== ENCOUNTER → 2021-10-19 10:39 | Outpatient (BNVA) | payer OTHER, SELFPAY | PROVIDERS: PCP Internal Medicine; Visit Provider Urology | DX: Z30.2 Encounter for sterilization (principal); F41.8 Other specified anxiety disorders | CPT/HCPCS: 55250 ==

== ENCOUNTER 2021-10-26 07:43 | Outpatient (REF) | payer OTHER, SELFPAY ==
--- NOTE | ~2021-10-26 | US_ITS ---
EXAMINATION: US RETROPERITONEAL LIMITED (RENAL ONLY) CLINICAL INFORMATION: Calculus of kidney. COMPARISON: None TECHNIQUE: Real-time imaging of the kidneys. FINDINGS: RIGHT KIDNEY: 10.8 x 4.5 x 6.7 cm (SAG x AP x TRV). The kidney is normal in size, contour, and echogenicity. Renal cortical thickness is normal. No calculi or focal parenchymal lesions. No hydronephrosis. LEFT KIDNEY: 11.3 x 5.3 x 4.6 cm (SAG x AP x TRV). The kidney is normal in size, contour, and echogenicity. Renal cortical thickness is normal. No calculi or focal parenchymal lesions. No hydronephrosis. US/US renal BI IMPRESSION: Normal renal ultrasound.
== END 2021-10-26 07:44 | disposition home or self-care (01) ==
LOC: HO.US 07:43
PROVIDERS: Visit Provider Anesthesiology
DX: N20.0 Calculus of kidney (principal)
CPT/HCPCS: 76775

== ENCOUNTER → 2021-11-09 13:39 | Outpatient (BNVA) | payer OTHER, SELFPAY | PROVIDERS: PCP Internal Medicine; Visit Provider Anesthesiology | DX: M47.814 Spondylosis without myelopathy or radiculopathy, thoracic region (principal); N20.0 Calculus of kidney; G89.4 Chronic pain syndrome | CPT/HCPCS: 99212 ==

== ENCOUNTER 2021-11-22 05:58 | Outpatient (REF) | payer OTHER, SELFPAY ==
--- NOTE | ~2021-11-22 | FL_ITS ---
EXAMINATION: XR FLUOROSCOPY WITH IMAGES CLINICAL INFORMATION: Spondylosis without myelopathy or radiculopathy. COMPARISON: None. TECHNIQUE: Fluoroscopy performed by Dawna Pace NP Fluoroscopy time: 0.4 minutes DAP: 1.26 Gycm2 Images: 4 FINDINGS: There are 4 digital images obtained revealing needle positioned adjacent to left L1, L2, L3 and L4 facet joints with contrast opacifying the adjacent soft tissues. Visualized vertebral heights, alignment and disc heights are normal. No visible acute fracture, dislocation or bony abnormality seen. The disc heights are maintained normal. FL/FL guidance in treatment room IMPRESSION: Fluoroscopy guidance was provided to referrer for pain management.
== END 2021-11-22 05:59 | disposition home or self-care (01) ==
LOC: HO.RADIR 05:58
PROVIDERS: Visit Provider Anesthesiology
DX: G89.4 Chronic pain syndrome (principal); M47.816 Spondylosis without myelopathy or radiculopathy, lumbar region; M47.814 Spondylosis without myelopathy or radiculopathy, thoracic region
CPT/HCPCS: 64493; 64494; 64495; J3300; Q9967

== ENCOUNTER → 2021-11-28 16:29 | Outpatient (BNVA) | payer OTHER, SELFPAY | PROVIDERS: PCP Internal Medicine; Visit Provider Anesthesiology | DX: Z13.89 Encounter for screening for other disorder (principal) ==

== ENCOUNTER 2022-01-24 12:54 | Outpatient (AMB) | payer OTHER, SELFPAY ==
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
== END 2022-01-24 12:59 | disposition left against medical advice (07) ==
LOC: HO.HUSH 12:54
PROVIDERS: PCP Internal Medicine; Visit Provider Urology
DX: E29.1 Testicular hypofunction (principal); F41.8 Other specified anxiety disorders
CPT/HCPCS: 99499

== ENCOUNTER → 2022-01-24 12:54 | Outpatient (BNVA) | payer OTHER, SELFPAY | PROVIDERS: PCP Internal Medicine; Visit Provider Urology | DX: Z13.89 Encounter for screening for other disorder (principal) ==

== ENCOUNTER 2022-02-07 06:31 | Outpatient (REF) | payer OTHER, SELFPAY ==
--- NOTE | ~2022-02-07 | FL_ITS ---
EXAMINATION: XR FLUOROSCOPY WITH IMAGES CLINICAL INFORMATION: Spondylosis. COMPARISON: 11/22/2021. TECHNIQUE: Fluoroscopy performed by Dr. Esdras Madsen. Fluoroscopy time: 0.4 minutes DAP: 2.56 Gy-cm2 Images: 6 FINDINGS: Images demonstrate needle and contrast in regions of the left-sided facet joints L1-L4. Visualized bones appear unremarkable. FL/FL guidance in treatment room IMPRESSION: Fluoroscopy for pain management procedure.
== END 2022-02-07 06:32 | disposition home or self-care (01) ==
LOC: HO.RADIR 06:31
PROVIDERS: Visit Provider Anesthesiology
DX: M47.816 Spondylosis without myelopathy or radiculopathy, lumbar region (principal); M47.814 Spondylosis without myelopathy or radiculopathy, thoracic region; G89.4 Chronic pain syndrome; N20.0 Calculus of kidney
CPT/HCPCS: 64493; 64494; 64495

== ENCOUNTER 2022-05-11 13:26 | Day surgery (SDC) | payer OTHER, SELFPAY ==
[2022-05-08 10:44] VITALS: BMI 20.2
--- NOTE | ~2022-05-11 | FL_ITS ---
EXAMINATION: XR FLUOROSCOPY WITH IMAGES CLINICAL INFORMATION: Left lumbar RFA. COMPARISON: MR lumbar spine 07/25/2021 TECHNIQUE: Fluoroscopy performed by Dr. Esdras Madsen. Fluoroscopy time: 1.0. Cumulative Dose: 8.95 mGy. DAP: 2.44 Gy-cm2. Images: 3. FINDINGS: There are spinal needles/electrodes on left at 4 levels with tip just superior to pedicles of L1 through L4. FL/FL guidance in OR IMPRESSION: Fluoroscopy for pain management procedures.
[2022-05-11 13:47] VITALS: BMI 19.9
[2022-05-11 13:53] VITALS: BP 112/80; PULSE 70; RESP 16; TEMP 36.8; O2SAT 99
[2022-05-11] MEDS: Lactated Ringers 1,000 ML 50 ML IVCONT (14:11)
--- NOTE | 2022-05-11 15:55 | MHC.SHP ---
Pre-Procedural Eval Section A Date of Service: 05/11/22 The patient is an INPATIENT: No Changes since office visit: Yes Patient answered all questions The History & Physical has been completed within 30 days and I have reviewed it.: No Section B Chief Complaint: Spondylosis without myelopathy or radiculopathy, Details of Present Illness: as above Relevant Family History (Specify if Yes): No Relevant Social History: None Present Medications: see Short Stay Collaborative assessment Medical History: No relevant PMH History of Previous Operations: No relevant previous surgery Allergies: Allergies Allergy/AdvReac Type Severity Reaction Status Date / Time seafood Allergy Severe Anaphylaxis Verified 05/11/22 13:46 Review of Systems Sugical H&P ROS: Negative: Constitution, Cardiovascular, Respiratory, Neurological, Psychiatric, Hem-Onc, Allergic/Immunologic, Gastrointestinal, Genitourinary, Musculoskeletal, Integumentary, Endocrine and Eyes/Ears/Nose/Throat Exam Surgical H&P Exam: Normal: HEENT, Normal: Heart, Normal: Lungs, Normal: Extremities, Normal: Abdomen, Normal: Skin and Normal: Neurological Plan Diagnosis/Plan: Unchanged I have reviewed the history and physical and performed a pertinent physical examination on my patient. No changes have occurred unless specified.
--- NOTE | 2022-05-11 15:57 | P.OP_ITS ---
Operative Note Operative Note Date of Service: 05/11/22 Narrative: RFA Left MB T12- L1- L2- L4 Informed consent was explained to the patient. All questions were explained and answered.? The patient was taken inside of the operating room where he was positioned prone on the operating table.? Time-out was performed delineating the patient's name and date of , correct site, side, the nature of the procedure, patient's allergy, preoperative antibiotic if needed.? All operating room staff were participating in OR time-out procedures.? [place] [employer] monitors were applied.? Patient was deeply sedated.? His lower back was prepped with ChloraPrep and draped with sterile towels. C-arm was brought over the operating field and sq picture of L1 through L4 vertebra were delineated on the screen.? Points of interest were delineated as connection of superior articular process of the above vertebrae on the left with corresponding transverse processes.? The projection of the point of interest to the skin were injected with the small amount of local anesthetic lidocaine 2% 1- 1.5 cc.? And after that 18 gauge 100 mm radiofrequency cannulas were driven to the point of interest in tunnel vision fashion under oblique view.? After needles gently contacted the bone at the point of interest the stylets were removed from the needles and electrodes were inserted into the needles.? Electrodes were connected to the radiofrequency machine and testing was p erformed for the patient's motor function.? There were no pathological motor responses indicating stimulation of somatic nerves.? After that electrodes were removed and each needle was injected with a small amount of bupivacaine 0.5% 1- 1.5 cc mixed with trace amount of Kenalog.? Upon completion of the injections the electrodes were reinserted and energy of 80 degree centigrade for 103 seconds was applied to each needle ? Upon completion of the energy application the needles were rotated 180? and energy applied with the same temperature and with the same time.? Upon completion of the injections needles were removed and sterile dressings were applied. The patient was awakened and taken outside of the operating room to the recovery room where he recovered uneventfully.?
--- NOTE | 2022-05-11 16:08 | PM.OP ---
Brief Operative Note Date of Service: 05/11/22 Pre-op diagnosis: spondylosis thoracolumbar spine Post-op diagnosis: same Procedure: Left T12- L1- L2- L3 RFA of the medial branches Implants: none Surgeon: Esdras Madsen MD Anesthesia: MAC Was an Business Loan Processor used for this Procedure?: No Estimated blood loss (mL): 1 Condition: stable Disposition: PACU
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
[2022-05-11 17:16] VITALS: BP 112/73; PULSE 58; RESP 17; TEMP 36.3; O2SAT 96
[2022-05-11 17:30] VITALS: BP 115/67; PULSE 53; RESP 16; O2SAT 96
[2022-05-11 17:48] VITALS: TEMP 36.6
== END 2022-05-11 17:48 | disposition home or self-care (01) ==
PROVIDERS: PCP Internal Medicine; Visit Provider Anesthesiology
PROC: (CPT 64633; principal; 2022-05-11 14:30)
DX: M47.816 Spondylosis without myelopathy or radiculopathy, lumbar region (principal); M47.814 Spondylosis without myelopathy or radiculopathy, thoracic region; G89.4 Chronic pain syndrome; R20.0 Anesthesia of skin; R20.2 Paresthesia of skin; J45.909 Unspecified asthma, uncomplicated; N20.0 Calculus of kidney; F17.210 Nicotine dependence, cigarettes, uncomplicated
CPT/HCPCS: 64633; 64635; 64636; J2250; J2795; J3010; J3300

== ENCOUNTER → 2022-06-08 10:13 | Outpatient (BNVA) | payer OTHER, SELFPAY | PROVIDERS: PCP Internal Medicine; Visit Provider Anesthesiology | DX: M47.814 Spondylosis without myelopathy or radiculopathy, thoracic region (principal); G89.4 Chronic pain syndrome; M47.816 Spondylosis without myelopathy or radiculopathy, lumbar region; N20.0 Calculus of kidney | CPT/HCPCS: 99212 ==

== ENCOUNTER 2022-12-30 01:39 | Emergency (ER) | payer OTHER, SELFPAY ==
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
[2022-12-30 01:44] VITALS: BP 128/85; PULSE 100; RESP 18; TEMP 36.6; O2SAT 98; BMI 20.8
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
[2022-12-30] MEDS: HYDROmorphone HCl 1 MG/ML SYRINGE IVPUSH ×2 (01:53→02:09)
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
--- NOTE | 2022-12-30 02:12 | PC.NURSE ---
pt transfered to [facility], verbal report given ED RN
== END 2022-12-30 02:16 | disposition short-term general hospital (02) ==
PROVIDERS: Emergency Provider Emergency Medicine Emergency Medical Services
DX: N50.82 Scrotal pain (principal); F17.210 Nicotine dependence, cigarettes, uncomplicated; Z79.899 Other long term (current) drug therapy; S71.132A Puncture wound without foreign body, left thigh, initial encounter; S71.131A Puncture wound without foreign body, right thigh, initial encounter; S31.33XA Puncture wound without foreign body of scrotum and testes, initial encounter; X93.XXXA Assault by handgun discharge, initial encounter; Y93.9 Activity, unspecified; Y92.9 Unspecified place or not applicable; Y99.9 Unspecified external cause status
CPT/HCPCS: 72170; 96372; 96374; 99285; J0690; J1170